=== PATIENT | female | born 1955 | race Caucasian/White ===

== ENCOUNTER 2023-11-20 06:31 | Day surgery (SDC) | payer MEDICARE ==
[2023-11-20] MEDS ORDERED: Lidocaine 4% Topical Sol 50 ML BOT ONE (06:45)
[2023-11-20] MEDS ORDERED: AFRIN NASAL MIST 15 ML BOT ONE ×2 (06:58→07:41)
[2023-11-20] MEDS ORDERED: Bacitracin Zinc Ointment 30 gm TUBE ONE (06:58)
[2023-11-20] MEDS ORDERED: Lidocaine 1% (PF) 30 ML VIAL ONE (06:58)
[2023-11-20] MEDS ORDERED: EPINEPHrine 1 MG/ML VIAL ONE (06:58)
[2023-11-20 07:45] LABS: Hematocrit 35.9 % (36.0-47.0); Hemoglobin 12.3 g/dL (12.0-16.0)
[2023-11-20 08:04] LABS: Anion Gap 15 mmol/L (10-20); BUN (Urea Nitrogen) 26 mg/dL (9.8-20.1); Calc. Creatinine Clearance 81 mL/min (70-130); Calcium 9.1 mg/dL (7.8-10.44); Carbon Dioxide 21 mmol/L (23-31); Chloride 106 mmol/L (98-107); Estimated GFR 82; Glucose 95 mg/dL (80-115); Potassium 3.6 mmol/L (3.5-5.1); Sodium 138 mmol/L (136-145)
[2023-11-20] MEDS ORDERED: fentaNYL PF 100 MCG/2 ML SYRINGE ONE (08:16)
[2023-11-20] MEDS ORDERED: PROPOFOL 20 ML ONE (08:16)
[2023-11-20] MEDS ORDERED: Rocuronium Bromide 10 MG/ML (10ML VIAL) ONE (08:18)
[2023-11-20] MEDS ORDERED: Lidocaine 1% PF 5 ML VIAL ONE ×2 (08:18→09:31)
[2023-11-20] MEDS ORDERED: Ondansetron PF 4 MG/2 ML Vial ONE (09:06)
[2023-11-20] MEDS ORDERED: ePHEDrine Sulfate 50 MG/10 ML VIAL ONE (09:10)
[2023-11-20] MEDS ORDERED: SUGAMMADEX SODIUM 200 MG/2 ML VIAL ONE (09:11)
[2023-11-20] MEDS ORDERED: Promethazine HCl 25 MG/ML VIAL ONE (09:51)
== END 2023-11-20 11:57 | disposition home or self-care (01) ==
LOC: SDC 06:31
PROVIDERS: ATTEND Otolaryngology Plastic Surgery within the Head & Neck
DX: J35.3 Hypertrophy of tonsils with hypertrophy of adenoids (principal); J35.01 Chronic tonsillitis; G47.33 Obstructive sleep apnea (adult) (pediatric); Z53.8 Procedure and treatment not carried out for other reasons; K13.79 Other lesions of oral mucosa; J34.2 Deviated nasal septum; J34.89 Other specified disorders of nose and nasal sinuses; J34.3 Hypertrophy of nasal turbinates; E78.00 Pure hypercholesterolemia, unspecified; I10 Essential (primary) hypertension; F32.A Depression, unspecified; G40.409 Other generalized epilepsy and epileptic syndromes, not intractable, without status epilepticus; Z90.710 Acquired absence of both cervix and uterus; Z98.890 Other specified postprocedural states; Z79.899 Other long term (current) drug therapy
CPT/HCPCS: 80048; 85014; 85018; 93005; J0171; J2001; J2405; J2550; J2704; 93010

== ENCOUNTER 2023-11-27 09:06 | Day surgery (SDC) | payer MEDICARE ==
[2023-11-26 10:19] VITALS: BMI 26.9
== END 2023-11-27 16:05 | disposition home or self-care (01) ==
LOC: SDC 09:06
PROVIDERS: ATTEND Otolaryngology Plastic Surgery within the Head & Neck
PROC: 09BM0ZZ Excision of Nasal Septum, Open Approach (ICD-10-PCS; principal; 2023-11-27)
PROC: 09TL0ZZ Resection of Nasal Turbinate, Open Approach (ICD-10-PCS; 2023-11-27)
PROC: 0CBN0ZZ Excision of Uvula, Open Approach (ICD-10-PCS; 2023-11-27)
PROC: 0CB30ZZ Excision of Soft Palate, Open Approach (ICD-10-PCS; 2023-11-27)
PROC: 09QM0ZZ Repair Nasal Septum, Open Approach (ICD-10-PCS; 2023-11-27)
DX: J34.2 Deviated nasal septum (principal); J34.3 Hypertrophy of nasal turbinates; J35.01 Chronic tonsillitis; J35.3 Hypertrophy of tonsils with hypertrophy of adenoids; J34.89 Other specified disorders of nose and nasal sinuses; G47.33 Obstructive sleep apnea (adult) (pediatric); K13.79 Other lesions of oral mucosa; I10 Essential (primary) hypertension; E78.00 Pure hypercholesterolemia, unspecified; F32.A Depression, unspecified; Z90.710 Acquired absence of both cervix and uterus; Z95.818 Presence of other cardiac implants and grafts
CPT/HCPCS: 30140; 30465; 30520; 42145; C1889; J0171; J0690; J1030; J1100; J1170; J2001; J2175; J2405; J2704; 88302; 88304